=== PATIENT | female | born 1935 | race Caucasian/White ===

== ENCOUNTER 2020-03-15 13:45 | Inpatient (IN) | payer MEDICARE ==
[2020-03-15] MEDS ORDERED: Aplisol ID ONE (17:12)
[2020-03-15 18:06] LABS: ANION GAP 11.4 MEQ/L (5-15); Calcium 8.5 mg/dL (8.4-10.2); Creatinine 1 1.19 mg/dL (0.52-1.04); Potassium 3.2 mmol/L (3.5-5.1)
[2020-03-15] MEDS ORDERED: XANAX 1 MG PO PRN (19:26)
[2020-03-15] MEDS: Colace 100 MG PO SCH (21:18)
[2020-03-15] MEDS: Norco 10/325 MG Tablet PO PRN (21:24)
[2020-03-16] MEDS: Norco 10/325 MG Tablet PO PRN ×2 (05:18→16:14)
[2020-03-16] MEDS ORDERED: XANAX 1 MG PO PRN (06:53)
[2020-03-16] MEDS ORDERED: Phenergan 25 MG INJ IM PRN (07:49)
[2020-03-16] MEDS: Cozaar 50 MG PO SCH (09:25)
[2020-03-16] MEDS: NORVASC 5 MG PO SCH (09:25)
[2020-03-16] MEDS: Toprol Xl 100 MG PO SCH (09:25)
[2020-03-16] MEDS: Colace 100 MG PO SCH ×2 (09:26→21:00)
[2020-03-16] MEDS: ZOCOR 20MG PO SCH (09:26)
[2020-03-16] MEDS: THERAGRAN MULTIVITAMIN PO SCH (09:26)
[2020-03-16] MEDS: Ecotrin 325 MG PO SCH ×2 (09:26→17:02)
[2020-03-16] MEDS ORDERED: NON-FORMULARY ITEM (Atorvastatin Calcium [Atorvastatin Calcium] 20 MG) PO SCH (10:00)
[2020-03-16] MEDS ORDERED: XANAX 1 MG PO SCH (10:00)
--- NOTE | 2020-03-16 11:39 | PCM.HP ---
History of Present Illness - Chief Complaint Chief Complaint: deconditioning related to left hip replacement History of Present Illness: is a 84 year old female who underwent a total left hip replacement 5 days ago, she was admitted to [facility] for therapy and rehab. she had some nausea and vomiting this morning but has resolved, pain is well controlled. overall she has no problems or concerns. - Review of Systems Constitutional: No Fever, No Chills Respiratory: No Cough, No Short Of Breath Cardiac: No Chest Pain, No Edema, No Syncope Abdominal/Gastrointestinal: No Abdominal Pain, No Nausea, No Vomiting, No Diarrhea Musculoskeletal: Other (left hip pain) Medications & Allergies Home Medications: Home Medication List Alprazolam 1 mg [Xanax 1 mg] 1 mg PO DAILY PRN PRN 03/15/20 [History Confirmed 03/15/20] Amlodipine Besylate 5 mg [Norvasc 5 mg] 5 mg PO DAILY 03/15/20 [History Confirmed 03/15/20] Aspirin EC 325 mg [Ecotrin 325 MG] 325 mg PO BIDWM 03/15/20 [History Confirmed 03/15/20] Atorvastatin Calcium 20 mg PO DAILY 03/15/20 [History Confirmed 03/15/20] Docusate Sodium 100 mg [Colace 100 MG] 100 mg PO BID 03/15/20 [History Confirmed 03/15/20] Hydrocodone/Acetaminophen [Hydrocodone-Acetamin 10-325 mg] 1 - 2 tab PO Q4H PRN PRN 03/15/20 [History Confirmed 03/15/20] Losartan Potassium 50 mg [Cozaar 50 MG] 100 mg PO DAILY 03/15/20 [History Confirmed 03/15/20] Metoprolol Succinate 100 mg [Toprol Xl 100 MG] 100 mg PO DAILY 03/15/20 [ History Confirmed 03/15/20] Multivitamins,Therapeutic Tab* [Theragran Multivitamin] 1 tab PO DAILY [History Confirmed 03/15/20] Nabumetone [Relafen] 1,500 mg PO DAILY 03/15/20 [History Confirmed 03/15/20] Allergies/Adverse Reactions: Allergies Allergy/AdvReac Type Severity Reaction Status Date / Time terbinafine [From Lamisil] Allergy Verified 03/15/20 17:50 meperidine [From Demerol] AdvReac Verified 03/15/20 17:50 methylprednisolone AdvReac Verified 03/15/20 17:50 [From Depo-Medrol] - Past Medical History Past Medical History: No Neurological History: No Pertinent History ENT History: No Pertinent History Cardiac History: Arrhythmia, Hypertension Respiratory History: No Pertinent History Endocrine Medical History: No Pertinent History Musculoskelatal History: Arthritis GI Medical History: No Pertinent History History: Other Pyscho-Social History: No Pertinent History Reproductive Disorders: No Pertinent History - Female History Are you now?: No - Past Surgical History Past Surgical History: Yes Neuro Surgical History: No Pertinent History Cardiac History: No Pertinent History Respiratory Surgery: No Pertinent History GI Surgical History: Appendectomy, Other Genitourinary Surgical Hx: No Pertinent History Musculskeletal Surgical Hx: Joint Replacement, Orthopedic Surgery Female Surgical History: No Pertinent History Other Surgical History: 2 knee replacements, 2 hip replacements, one shoulder surgery - Social History Exposure to second hand smoke: Yes Alcohol: None Drug Use: none - Physical Exam Vital Signs: Vital Signs - 24 hr Temp Pulse Resp BP Pulse Ox 03/16/20 09:20 92 H 188/83 03/16/20 08:00 98.5 F 76 20 183/83 96 03/15/20 19:39 98.9 F 85 18 165/71 95 03/15/20 17:29 98.4 F 78 16 141/70 98 General Appearance: no apparent distress, alert Respiratory Exam: normal breath sounds, lungs clear, No respiratory distress Cardiovascular Exam: regular rate/rhythm, normal heart sounds, normal peripheral pulses Gastrointestinal/Abdomen Exam: soft, normal bowel sounds, No tenderness, No mass Extremity Exam: other (dressing clean/dry/intact to left hip, bruising present. no redness, no swelling, no drainage) Wound Assessment: Skin/Wound Assessment Wound/Incision Assessment Start: 03/15/20 17: 48 Text: Status: Active Freq: Q6H Protocol: Document 03/16/20 08:00 DS (Rec: 03/16/20 08:37 DS [id number]) Wound/Incision Assessment Left Hip Wound Assessment Shift Assessment Wound Type Incision Wound Stage Non Pressure Wound Dressing Status Dry & Intact Drainage Amount None Surrounding Tissue [place] Primary Dressing AQUACEL DRESSING Results - Labs Lab/Micro Results: Lab Results-Last 24 Hours 03/15/20 Range/Units 17:49 Sodium 139 (137-145) mmol/L Potassium 3.2 L (3.5-5.1) mmol/L Chloride 105 (98-107) mmol/L Carbon Dioxide 26 (22-30) mmol/L Anion Gap 11.4 (5-15) MEQ/L BUN 17 (7-17) mg/dL Creatinine 1.19 H (0.52-1.04) mg/dL Estimated GFR 45.8 ML/MIN Glucose 134 H (74-106) mg/dL Calcium 8.5 (8.4-10.2) mg/dL Assessment/Plan (1) History of total left hip arthroplasty Current Visit: Yes Status: Acute Assessment & Plan: on aspirin, completed eliquis course, has order for zofran. likely nausea/ vomiting was related to pain med etc Code(s): Z96.642 - PRESENCE OF LEFT ARTIFICIAL HIP JOINT (2) Essential hypertension Current Visit: Yes Status: Acute Assessment & Plan: continue home meds Code(s): I10 - ESSENTIAL (PRIMARY) HYPERTENSION
[2020-03-17] MEDS: Norco 10/325 MG Tablet PO PRN ×3 (04:59→15:31)
[2020-03-17] MEDS: Ecotrin 325 MG PO SCH ×2 (08:10→16:37)
[2020-03-17] MEDS: THERAGRAN MULTIVITAMIN PO SCH (09:48)
[2020-03-17] MEDS: ZOCOR 20MG PO SCH (09:48)
[2020-03-17] MEDS: NORVASC 5 MG PO SCH (09:48)
[2020-03-17] MEDS: Colace 100 MG PO SCH ×2 (09:48→19:38)
[2020-03-17] MEDS: Toprol Xl 100 MG PO SCH (09:48)
[2020-03-17] MEDS: Cozaar 50 MG PO SCH (09:48)
[2020-03-17 10:37] LABS: Absolute Neutrophil Ct (ANC) 4.55 (1.4-6.9); BASOPHIL % 0.6 % (0.0-0.4); Basophil (Absolute #) 0.05 (0-0.4); Eosinophil % 3.6 % (0.00-5.0); Hematocrit 32.3 % (35-47); Hemoglobin 10.7 gm/dl (12.0-16.0); Lymphocyte (Absolute #) 2.48 (1.0-4.6); Lymphocytes % 29.5 % (24.0-44.0); Mean Cell Volume 93.4 fl (78-100); Mean Corpuscular Hemoglobin 30.9 pg (26-32); Mean Corpuscular Hgb Concent. 33.1 g/dl (32-36); Mean Platelet Volume 9.5 fl (7.5-11.0); Monocyte (Absolute #) 1.03 (0.0-1.3); Monocytes % 12.2 % (0.0-12.0); Neutrophil % 54.1 % (36.0-66.0); Platelet Count 375 K/mm3 (150-450); Red Blood Count 3.46 M/mm3 (4.1-5.4); Red Cell Distribution Width 13.5 % (11.5-14.0); White Blood Count 8.4 K/mm3 (4.0-10.5)
[2020-03-17 11:05] LABS: ANION GAP 12.8 MEQ/L (5-15); Creatinine 1 1.13 mg/dL (0.52-1.04); Potassium 3.4 mmol/L (3.5-5.1)
[2020-03-17] MEDS: ZOFRAN ODT 4 MG PO PRN ×2 (12:39→17:57)
[2020-03-17 15:48] LABS: Appearance SLIGHTLY CLOUDY (CLEAR); Bacteria RARE /HPF (NEGATIVE); Bilirubin NEGATIVE (NEGATIVE); Blood NEGATIVE Ery/ul (0-5); Epithelial Cells RARE /HPF (FEW); Glucose NEGATIVE (NEGATIVE); Hyaline Casts 26-50 /LPF (0-2); Ketones NEGATIVE (NEGATIVE); Leukocyte Esterase TRACE (NEGATIVE); Mucus SLIGHT /HPF (NEGATIVE); Nitrite NEGATIVE (NEGATIVE); Protein,Urine Dip NEGATIVE (Negative); RBC 0-2 /HPF (0-2); Specific Gravity 1.018 (1.005-1.025); Urobilinogen NEGATIVE mg/dL (0-1)
[2020-03-17] MEDS: Aplisol ID ONE ×2 (16:11→16:12)
[2020-03-17] MEDS: XANAX 1 MG PO PRN (19:38)
[2020-03-18] MEDS: THERAGRAN MULTIVITAMIN PO SCH (08:43)
[2020-03-18] MEDS: NORVASC 5 MG PO SCH (08:43)
[2020-03-18] MEDS: Colace 100 MG PO SCH ×2 (08:43→20:51)
[2020-03-18] MEDS: Cozaar 50 MG PO SCH (08:43)
[2020-03-18] MEDS: Ecotrin 325 MG PO SCH ×2 (08:43→16:55)
[2020-03-18] MEDS: Toprol Xl 100 MG PO SCH (08:44)
[2020-03-18] MEDS: Norco 10/325 MG Tablet PO PRN (08:44)
[2020-03-18] MEDS: ZOCOR 20MG PO SCH (08:44)
[2020-03-18] MEDS: XANAX 1 MG PO PRN (20:51)
[2020-03-19] MEDS: Ecotrin 325 MG PO SCH ×2 (07:47→16:53)
--- NOTE | 2020-03-19 08:46 | PCM.NOTE ---
Date and Time: 03/19/20 0845 Subjective Assessment: doing well, has some pain with therapy but is controlled. tolerating po, no confusion. Objective Exam General Appearance: no apparent distress, alert Wound Assessment: Skin/Wound Assessment Wound/Incision Assessment Start: 03/15/20 17: 48 Text: Status: Active Freq: Q6H Protocol: Document 03/19/20 07:51 ABH (Rec: 03/19/20 07:54 ABH [id number]) Wound/Incision Assessment Left Hip Wound Assessment Shift Assessment Wound Type Incision Wound Stage Non Pressure Wound Dressing Status Dry & Intact Drainage Amount None Primary Dressing AQUACEL DRESSING Comment dressing CDI Wound Photo Photo Taken No Respiratory Exam: normal breath sounds, lungs clear, No respiratory distress Cardiovascular Exam: regular rate/rhythm, normal heart sounds Gastrointestinal/Abdomen Exam: soft, No tenderness, No mass Extremity Exam: other (left hip dressing c/d/i) OBJECTIVE DATA Vital Signs: Vital Signs - 24 hr Temp Pulse Resp BP Pulse Ox 03/19/20 07:36 98.9 F 61 18 141/67 94 L 03/18/20 20:00 98.5 F 88 20 123/59 94 L Pain Assessment - Last Documented Pain Intensity 0 Pain Scale Used FLACC Intake and Output: Intake & Output 03/16/20 03/17/20 03/18/20 03/19/20 11:59 11:59 11:59 11:59 Intake Total 720 607 539 5470 Output Total 100 Balance 720 965 576 6698 Weight 90.6 kg 90.6 kg 90.7 kg Multi-Disciplinary Progress Notes: Multi-Disciplinary Progress Notes 03/18/20 11:52 Case Management Note by Dara Bradford IN PT REPORTS SHE EXPECTS PATIENT TO BE READY FOR DC EARLY NEXT WEEK. ROCIO NOTIFIED AND VERIFIED UNDERSTANDING. Initialized on 03/18/20 11:52 - END OF NOTE 03/18/20 10:00 Case Management Note by Dara Bradford Addendum entered by Dara Bradford 03/18/20 11:36: *HER Original Note: DAILY COVID COMMUNICATION SENT TO HIS DAUGHTER PER REQUEST AT THIS TIME Initialized on 03/18/20 10:00 - END OF NOTE Assessment/Plan (1) History of total left hip arthroplasty Current Visit: Yes Status: Acute Code(s): Z96.642 - PRESENCE OF LEFT ARTIFICIAL HIP JOINT (2) Essential hypertension Current Visit: Yes Status: Acute Code(s): I10 - ESSENTIAL (PRIMARY) HYPERTENSION
[2020-03-19] MEDS: THERAGRAN MULTIVITAMIN PO SCH (09:53)
[2020-03-19] MEDS: Colace 100 MG PO SCH ×2 (09:53→21:02)
[2020-03-19] MEDS: Cozaar 50 MG PO SCH (09:53)
[2020-03-19] MEDS: ZOCOR 20MG PO SCH (09:53)
[2020-03-19] MEDS: NORVASC 5 MG PO SCH (09:53)
[2020-03-19] MEDS: Toprol Xl 100 MG PO SCH (09:53)
[2020-03-19] MEDS: NORCO 5/325 MG PO PRN (12:41)
[2020-03-19] MEDS ORDERED: DULCOLAX 5 MG PO PRN (12:53)
[2020-03-19] MEDS: TYLENOL 325 MG PO PRN ×2 (16:53→21:02)
[2020-03-19] MEDS: XANAX 1 MG PO PRN (21:02)
[2020-03-20] MEDS: Ecotrin 325 MG PO SCH ×2 (08:07→16:40)
[2020-03-20] MEDS: ZOCOR 20MG PO SCH (08:36)
[2020-03-20] MEDS: THERAGRAN MULTIVITAMIN PO SCH (08:36)
[2020-03-20] MEDS: NORVASC 5 MG PO SCH (08:36)
[2020-03-20] MEDS: Colace 100 MG PO SCH ×2 (08:36→20:52)
[2020-03-20] MEDS: TYLENOL 325 MG PO PRN ×2 (08:36→20:51)
[2020-03-20] MEDS: Toprol Xl 100 MG PO SCH (08:36)
[2020-03-20] MEDS: Cozaar 50 MG PO SCH (08:36)
[2020-03-20] MEDS: NORCO 5/325 MG PO PRN (14:22)
[2020-03-20] MEDS: XANAX 1 MG PO PRN (20:52)
[2020-03-21] MEDS: Ecotrin 325 MG PO SCH ×2 (08:12→16:09)
[2020-03-21] MEDS: ZOCOR 20MG PO SCH (09:35)
[2020-03-21] MEDS: TYLENOL 325 MG PO PRN (09:35)
[2020-03-21] MEDS: Colace 100 MG PO SCH ×2 (09:35→21:52)
[2020-03-21] MEDS: NORVASC 5 MG PO SCH (09:35)
[2020-03-21] MEDS: Toprol Xl 100 MG PO SCH (09:35)
[2020-03-21] MEDS: Cozaar 50 MG PO SCH (09:35)
[2020-03-21] MEDS: THERAGRAN MULTIVITAMIN PO SCH (09:35)
[2020-03-21] MEDS: NORCO 5/325 MG PO PRN (21:52)
[2020-03-22] MEDS: XANAX 1 MG PO PRN ×2 (02:07→21:33)
[2020-03-22] MEDS: Ecotrin 325 MG PO SCH ×2 (08:06→17:37)
[2020-03-22] MEDS: Colace 100 MG PO SCH ×2 (09:59→21:33)
[2020-03-22] MEDS: Toprol Xl 100 MG PO SCH (09:59)
[2020-03-22] MEDS: THERAGRAN MULTIVITAMIN PO SCH (09:59)
[2020-03-22] MEDS: Cozaar 50 MG PO SCH (09:59)
[2020-03-22] MEDS: NORVASC 5 MG PO SCH (09:59)
[2020-03-22] MEDS: ZOCOR 20MG PO SCH (09:59)
[2020-03-22] MEDS: TYLENOL 325 MG PO PRN ×2 (17:37→21:33)
[2020-03-23] MEDS: Ecotrin 325 MG PO SCH ×2 (07:56→16:35)
[2020-03-23] MEDS: Cozaar 50 MG PO SCH (07:56)
[2020-03-23] MEDS: NORVASC 5 MG PO SCH (07:56)
[2020-03-23] MEDS: Toprol Xl 100 MG PO SCH (07:56)
[2020-03-23] MEDS: Colace 100 MG PO SCH (07:56)
[2020-03-23] MEDS: ZOCOR 20MG PO SCH (07:56)
[2020-03-23] MEDS: THERAGRAN MULTIVITAMIN PO SCH (07:56)
--- NOTE | 2020-03-23 09:31 | PCM.DS ---
Discharge Summary Date of Admission: 03/15/20 16:46 Admitting Physician: CELIA CORTES Primary Care Provider: CELIA CORTES Allergies Allergies terbinafine [From Lamisil] Allergy (Verified 03/15/20 17:50) meperidine [From Demerol] Adverse Reaction (Verified 03/15/20 17:50) methylprednisolone [From Depo-Medrol] Adverse Reaction (Verified 03/15/20 17:50) Hospital Summary - Hospital Course Hospital Course: Pt is 84 yo female with HTN and hyperlipidemia who was admitted for swing bed after having total hip replacement. Her therapy has gone well. She is sherman po. Has no complaints this morning. walking with walker. ready to d/c to home. - Vitals & Intake/Output Vital Signs: Vital Signs Temperature 98.4 F 03/23/20 07:41 Pulse Rate 89 03/23/20 07:41 Respiratory Rate 16 03/23/20 07:41 Blood Pressure 140/65 03/23/20 07:41 O2 Sat by Pulse Oximetry 95 03/23/20 07:41 Intake & Output: Intake & Output 03/20/20 03/21/20 03/22/20 03/23/20 11:59 11:59 11:59 11:59 Intake Total 840 580 480 Balance 840 580 480 Weight 90.5 kg 90.5 kg - Lab Result Diagrams: 03/17/20 10:20 03/17/20 10:20 - Procedures and Test Procedures and Tests throughout Hospitalization: Therapy Orders & Screens 03/16/20 08:16 OT Eval and Treat ( Order) ROUTINE Comment: Consulting Provider: Physician Instructions: Reason For Exam: Diagnosis: deconditioning related to left hip replacement PT Eval & Treat (MD Order) ROUTINE Reason for Eval:: see diagnosis Diagnosis: deconditioning related to left hip replacement 03/16/20 14:43 PT Clarification Order Comment: Physician Instructions: Reason For Exam: PT Clarification: P.T. TO RX 5X/WK UNTIL D/C TO ADDRESS FUNCTIONAL MOBILITY AND GAIT TRAINING, THER EX, BALANCE AND ENDURANCE ACTVITIES, AND PT. ED. RE: HEP AND SAFETY AWRAENESS TO MAXIMIZE FUNCTIONAL INDEPENDENCE FOR SAFE RETURN HOME. 03/16/20 16:18 OT Clarification Order Comment: Physician Instructions: Reason For Exam: OT Clarification: OT TO TX 5X/WK TO ADDRESS ADL RETRAINING WITH A.E./DME RECOMMENDATIONS AND TRAINING NEEDED, THERAPUETIC EXERCISES, FUNCTIONAL MOBILITY, REVIEW OF HIP PXS AND OTHER SAFETY PXS IN ORDER FOR NATHAN TO RETURN TO HOME ALONE WITH CLOSE SUPERVISION/ASSIST FROM FAMILY NEEDED. Discharge Exam General Appearance: no apparent distress, obese Neurologic Exam: oriented x 3, cooperative Eye Exam: eyes nml inspection Ears, Nose, Throat Exam: moist mucous membranes Neck Exam: normal inspection Respiratory Exam: normal breath sounds, lungs clear, No crackles/rales, No rhonchi, No wheezing Cardiovascular Exam: regular rate/rhythm, normal heart sounds, No murmur Gastrointestinal/Abdomen Exam: soft, normal bowel sounds, No tenderness, No distention, No mass, No guarding, No rebound Extremity Exam: other (tr LE edema on R, 1+ pretibial edema on L) Skin Exam: normal color, warm, dry, No rash Wound Assessment: Skin/Wound Assessment Wound/Incision Assessment Start: 03/15/20 17: 48 Text: Status: Active Freq: Q6H Protocol: Document 03/23/20 07:43 CYNTHIA (Rec: 03/23/20 07:44 CYNTHIA [id number]) Wound/Incision Assessment Left Hip Wound Assessment Shift Assessment Wound Type Incision Wound Stage Non Pressure Wound Dressing Status Dry & Intact Drainage Amount None Primary Dressing AQUACEL DRESSING Comment dressing CDI Wound Photo Photo Taken No Final Diagnosis/Problem List - Final Discharge Diagnosis/Problem (1) History of total left hip arthroplasty Current Visit: Yes Status: Acute Assessment & Plan: Recovering well, continue PT. Home today. Code(s): Z96.642 - PRESENCE OF LEFT ARTIFICIAL HIP JOINT (2) Essential hypertension Current Visit: Yes Status: Chronic Code(s): I10 - ESSENTIAL (PRIMARY) HYPERTENSION - Discharge Disposition: Home, Self-Care Condition: Good Prescriptions: Continue Multivitamins,Therapeutic Tab* [Theragran Multivitamin] 1 tab PO DAILY Metoprolol Succinate 100 mg [Toprol Xl 100 MG] 100 mg PO DAILY Losartan Potassium 50 mg [Cozaar 50 MG] 100 mg PO DAILY Hydrocodone/Acetaminophen [Hydrocodone-Acetamin 10-325 mg] 1 - 2 tab PO Q4H PRN PRN PRN Reason: Pain Atorvastatin Calcium 20 mg PO DAILY Aspirin EC 325 mg [Ecotrin 325 MG] 325 mg PO BIDWM Amlodipine Besylate 5 mg [Norvasc 5 mg] 5 mg PO DAILY Alprazolam 1 mg [Xanax 1 mg] 1 mg PO DAILY PRN PRN PRN Reason: Anxiety Docusate Sodium 100 mg [Colace 100 MG] 100 mg PO BID Nabumetone [Relafen] 1,500 mg PO DAILY Additional Instructions: PHYSICAL THERAPY WILL BE IN CONTACT TO ARRANGE THERAPY Follow up with: CELIA CORTES MD [Primary Care Provider] - 03/31/20 11:00 am STONE BONNER Jr., MD [NON-STAFF PHY W/O PRIVILEGES] - 03/24/20 9:00 am
[2020-03-23 15:50] VITALS: BP 161/76; PULSE 79; O2SAT 97
== END 2020-03-23 17:20 | disposition home or self-care (01) | DRG 561 ==
LOC: MED SURG 16:46
PROVIDERS: ADMIT Family Medicine; ATTEND Family Medicine
DX: Z47.1 Aftercare following joint replacement surgery (principal); Z96.642 Presence of left artificial hip joint; R11.2 Nausea with vomiting, unspecified; I10 Essential (primary) hypertension; Z79.899 Other long term (current) drug therapy
CPT/HCPCS: 36415; 80048; 81001; 85025; J2550; Q0162; 97110-GP; A9270-GY